=== PATIENT | female | born 1960 | race Two or more races ===

== ENCOUNTER 2023-01-22 09:58 | Emergency (ER) | payer MEDICAID ==
[~2023-01-22] VITALS: Ht 157.5 cm; Wt 77.0 kg
[2023-01-22 10:43] VITALS: BP 141/62
[2023-01-22] MEDS ORDERED: ACETAMINOPHEN 500 MG TAB PO ONE (13:15)
[2023-01-22] MEDS ORDERED: IBUP800T27 PO (14:18)
[2023-01-22] MEDS ORDERED: CEPH-510 PO (14:18)
== END 2023-01-22 14:29 | disposition home or self-care (01) ==
LOC: ER 09:58
DX: S00.81XA Abrasion of other part of head, initial encounter (principal); W19.XXXA Unspecified fall, initial encounter; Y93.89 Activity, other specified; Y92.89 Other specified places as the place of occurrence of the external cause; Y99.8 Other external cause status
CPT/HCPCS: 70450; 70486; 73562